=== PATIENT | male | born 2000 | race American Indian/Alaskan Native ===

== ENCOUNTER 2018-05-14 20:47 | Emergency (ER) | payer OTHER ==
--- NOTE | 2018-05-14 21:28 | Cat Scan Report ---
FINAL REPORT PROCEDURE: CT HEAD/BRAIN WO CON TECHNIQUE: Computerized tomography of the head was performed without contrast material. HISTORY: left arm numbness/weakness COMPARISON: No prior studies are available for comparison. FINDINGS: No CT evidence of intracranial mass, hemorrhage, acute territorial infarction, or hydrocephalus. Intracranial arteries are symmetric in density. Calvarium is intact. There is minimal amount of fluid in the posterior right ethmoid sinus. Mastoids are aerated. IMPRESSION: No CT evidence of acute intracranial abnormality
[2018-05-14 21:57] LABS: Hematocrit 44.2 % (35.5-45.6); Mean Corpuscular HGB Conc 34 % (32-34); Mean Corpuscular Hemoglobin 28 pg (28-32); Mean Corpuscular Volume 82 fl (84-94); Platelet Count 227 K/mm3 (140-440); Red Cell Distribution Width 13.3 % (13.2-15.2)
[2018-05-14 22:02] LABS: BUN/Creatinine Ratio 13; Blood Urea Nitrogen 10 mg/dL (9-20); Calcium 9.5 mg/dL (8.4-10.2); Hemolysis Index 47
--- NOTE | 2018-05-14 22:15 | Emergency Department Report ---
ED Chest Pain HPI - General Chief Complaint: Neuro Symptoms/Deficit Stated Complaint: NUMBNESS L SIDE OF ARM, LIGHT HEADED, CHEST PAIN Time Seen by Provider: 05/14/18 22:14 Source: patient Mode of arrival: Ambulatory Limitations: No Limitations - History of Present Illness Initial Comments: There is a healthy 18-year-old man complains of multiple symptoms, primarily a sensation of feeling like he is unable to catch his breath when he lays prone in bed and feels short of breath, forcing him to lay on his side. Onset has been for the past week, which he associates with having had a right mandibular molar pulled, #28, 10 days ago, by dentist. Procedure was uneventful, she was placed on antibiotics and pain medication, but continued to have discomfort, saw dentist yesterday and was told he had an ulcer in that area, but was not informed of dry socket or any infection. Nonetheless he was placed on different antibiotic, as well as ibuprofen by prescription, and he has not yet picked up either prescription. Since initial procedure, patient has also had anterior chest discomfort, intermittent, [id number], with a sense of difficulty breathing with deep breathing, for 4 days duration, which he describes as moderate to significant, been 4-5 out of 10, localized to the anterior chest, associated numbness of his left hand and arm today, but no focal weakness and no extension of pain. Today on getting up his left hand felt numb, although this has since resolved, but was able to use his hand without difficulty. He has not had focal weakness elsewhere. He had some aching in his right shoulder, reports that he has previously broken the shoulder, but not sure whether it's right or left. He is also had some headache, which is generalized, but also tends to radiate towards the back of his neck and into the area of right posterior back. Patient has been sedentary since his illness, and is usually quite active, and plays basketball most days. He has a past history of asthma on the that this is an active, and he has not had any sense of wheezing, no cough or congestion, no abdominal pain, no nausea or vomiting. - Related Data Allergies Allergy/AdvReac Type Severity Reaction Status Date / Time No Known Allergies Allergy Unverified 05/14/18 21:04 Heart Score - HEART Score History: Slightly suspicious EKG: Normal Age: < 45 Risk factors: No known risk factors Troponin: < normal limit HEART Score: 0 ED Review of Systems ROS: Stated complaint: NUMBNESS L SIDE OF ARM, LIGHT HEADED, CHEST PAIN Other details as noted in HPI Comment: All other systems reviewed and negative Constitutional: no symptoms reported Eyes: denies: eye pain, eye discharge, vision change ENT: denies: ear pain, throat pain, congestion Respiratory: see HPI, other. denies: cough, shortness of breath, SOB with exertion Cardiovascular: chest pain. denies: palpitations, dyspnea on exertion, edema, syncope, paroxysmal nocturnal dyspnea Endocrine: no symptoms reported Gastrointestinal: denies: abdominal pain, nausea, diarrhea Genitourinary: denies: urgency, dysuria Musculoskeletal: as per HPI, back pain (right upper back around the right scapula). denies: joint swelling, arthralgia, myalgia Skin: denies: rash, lesions Neurological: headache (intermittent, generalized), numbness (left arm, this morning, on waking, resolved). denies: weakness, paresthesias, confusion, abnormal gait, vertigo Psychiatric: denies: anxiety, depression Hematological/Lymphatic: denies: easy bleeding, easy bruising ED Past Medical Hx - Past Medical History Hx Asthma: Yes (skin active, no routine medications) - Social History Smoking Status: Current Every Day Smoker Substance Use Type: None ED Physical Exam - General Limitations: No Limitations General appearance: alert, in no apparent distress - Head Head exam: Present: atraumatic, normocephalic, other (minimal tenderness to palpation generally, muscular, no bony defect) - Eye Eye exam: Present: PERRL, EOMI - ENT ENT exam: Present: normal exam, mucous membranes moist. Absent: normal orophraynx (dry socket noted an area of recent extraction, #28) - Neck Neck exam: Present: normal inspection, tenderness (mild right levator scapular tenderness extending into rhomboid area on the right), full ROM. Absent: meningismus - Respiratory Respiratory exam: Present: normal lung sounds bilaterally. Absent: respiratory distress, wheezes, rales, rhonchi, chest wall tenderness, accessory muscle use - Cardiovascular Cardiovascular Exam: Present: regular rate, normal heart sounds. Absent: systolic murmur, diastolic murmur - GI/Abdominal GI/Abdominal exam: Present: soft, normal bowel sounds. Absent: tenderness, guarding, rebound, rigid - Rectal Rectal exam: Present: deferred - Extremities Exam Extremities exam: Present: normal inspection, full ROM, normal capillary refill. Absent: tenderness, pedal edema, joint swelling - Back Exam Back exam: Present: full ROM, other (right rhomboid major, minor, and right levator scapular tenderness, no bony tenderness). Absent: CVA tenderness (R), CVA tenderness (L) - Neurological Exam Neurological exam: Present: alert, oriented X3, CN II-XII intact. Absent: motor sensory deficit - Psychiatric Psychiatric exam: Present: normal affect, normal mood - Skin Skin exam: Present: warm, dry, intact, normal color. Absent: rash, petechiae, ecchymosis ED Course Vital Signs 05/14/18 20:59 Temperature 36.8 C Pulse Rate 80 Respiratory 14 Rate Blood Pressure 128/80 O2 Sat by Pulse 100 Oximetry ED Medical Decision Making - Lab Data Result diagrams: 05/14/18 21:27 05/14/18 21:27 - EKG Data -: EKG Interpreted by Id EKG shows normal: sinus rhythm (occasional atrial premature complex), axis, intervals, QRS complexes (ST elevation typical of early repolarization pattern with elevated J point) Rate: normal - Radiology Data Radiology results: report reviewed (normal CT scan of brain with out contrast,) - Medical Decision Making Patient has a stable physical examination, with minor musculoskeletal full tenderness, predominantly in the right rhomboid area extending into his back, but otherwise has normal cardiopulmonary examination, normal neurologic examination, normal EKG, and normal lab evaluation. He does have appearance of a dry socket, but this is not sufficient to cause all of his symptoms, but I think that most of his discomfort is a new experience of sore and tight muscles , which may be making it difficult for patient to experience his normal breathing. Perc factors negative, there is at extremely low risk for pulmonary embolism, and I suspect that his symptoms will resolve once he resumed his regular activity, and becomes more active. I released him to his regular duties , and with fragmentation to follow with dentist for his persistent poor healing of his area of extraction Critical Care Time: No Critical care attestation.: If time is entered above; I have spent that time in minutes in the direct care of this critically ill patient, excluding procedure time. ED Disposition Clinical Impression: Difficulty breathing, History of recent dental procedure Muscle strain of right upper back Qualifiers: Encounter type: initial encounter Qualified Code(s): S29.012A - Strain of muscle and tendon of back wall of thorax, initial encounter Disposition: TO HOME OR SELFCARE Is pt being admited?: No Does the pt Need Aspirin: No Condition: Stable Instructions: Muscle Strain (ED) Additional Instructions: You have some sore muscles in in the right upper back, which may be increasing your sense of difficulty breathing. However, your physical examination and your laboratory, radiologic and electrocardiographic examination today is all entirely normal. There is no physiologic reason apparent at this examination for your symptoms, and we believe that you can start resuming your regular activities without limitation. We did find that you're dental extraction site is not healing fully, and it appears to be a dry socket, and we recommend that you have follow-up with your dentist the next couple of days. Otherwise you may perform all of your routine activities, including physical exertion and sports and recreation. Return any time for repeat examination if you have any recurrent symptoms. Time of Disposition: 23:08
[2018-05-14 23:26] VITALS: BP 132/78
== END 2018-05-14 23:26 | disposition home or self-care (01) ==
LOC: ED 20:47
DX: S29.012A Strain of muscle and tendon of back wall of thorax, initial encounter (principal); R07.89 Other chest pain; R51 Headache; R06.00 Dyspnea, unspecified; J45.909 Unspecified asthma, uncomplicated; F17.200 Nicotine dependence, unspecified, uncomplicated; Z98.818 Other dental procedure status; X58.XXXA Exposure to other specified factors, initial encounter; Y93.89 Activity, other specified; Y92.89 Other specified places as the place of occurrence of the external cause; Y99.8 Other external cause status
CPT/HCPCS: 36415; 70450; 80048; 84484; 85027; 93005; 93010; 99284